=== PATIENT | male | born 1955 | race Caucasian/White ===

== ENCOUNTER → 2021-08-20 12:30 | Outpatient (CLI) | payer OTHER, SELFPAY ==
--- NOTE | 2021-08-20 | DI.MRI.S_ITS ---
PROCEDURE: MR WRIST LT W CON INDICATIONS: Left scapholunate collapse TECHNIQUE: After the administration of 3-4 mL of dilute intra-articular Gadolinium contrast into the radiocarpal compartment, coronal T1 spin echo with fat saturation and T2 fast spin echo with fat saturation, axial T1 spin echo and T2 fast spin echo with fat saturation, sagittal T1 spin echo with and without fat saturation through the wrist. COMPARISON: [facility], CR, XR WRIST 3+ VIEWS LEFT, 03/23/2021, 14:43. FINDINGS: Image quality: Excellent. Bones and cartilage: Scattered T2 hyperintense/T1 hypointense lesions are seen throughout the carpus, most prominent in the hamate, measuring up to 7.3 mm, which may reflect fibrocystic or erosive change. Irregularity of the proximal scaphoid pole with fragmentation. The remaining overlying cartilage surfaces appear maintained. Carpal ligaments: Partial tear of the scapholunate ligament. The lunotriquetral ligaments is intact. The radioscaphocapitate and radiolunotriquetral ligaments appear intact. Widening of the 3rd intermetacarpal space, compatible with interosseous ligament disruption. Triangular fibrocartilage complex: Ulnar avulsion of the TFCC. No gadolinium extravasation into the distal radioulnar joint. The extensor carpi ulnaris tendon is normal in location. Fluid surrounds the tendon, which may reflect tenosynovitis. Tendons and soft tissues: The carpal tunnel structures appear normal, including the median nerve. The ulnar nerve appears normal within Guyon's canal. The remaining extensor tendon compartments demonstrate normal morphology, without pathologic tendon sheath fluid. Fluid surrounds the flexor carpi radialis tendon, concerning for tenosynovitis. IMPRESSION: 1. Scattered cystic changes of the carpus, which may reflect fibrocystic or erosive change. 2. 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 3. Partial tear of the scapholunate ligament without widening. 4. Widening of the 3rd intermetacarpal space, concerning for interosseous ligament disruption. 5. Ulnar avulsion of the TFCC. 6. Tenosynovitis of the flexor carpi radialis and extensor carpi ulnaris tendons. Dictated by: Niraj Hankins M.D. on 08/20/2021 at 15:07 Approved by: Niraj Hankins M.D. on 08/20/2021 at 15:32
--- NOTE | 2021-08-20 | DI.RAD.S_ITS ---
PROCEDURE: FL WRIST INJECTION MR/CT LT INDICATIONS: Left scapholunate collapse COMPARISON: None. TECHNIQUE: After informed consent had been obtained, the wrist was examined fluoroscopically, and a site chosen for injection of the radiocarpal compartment from a dorsal approach. Skin was prepped and draped in a sterile fashion and 1% lidocaine infiltrated from the skin down to the articular surface. A hypodermic needle was then introduced into the articular space and a modest amount of contrast medium was instilled confirming intra-articular needle tip placement. This was followed by approximately 4 mL of a dilute gadolinium solution. Needle was removed and dressing was applied. The patient experienced no complications throughout the procedure and left the fluoroscopic suite in no apparent distress. FINDINGS: A single fluoroscopic spot image demonstrates intra-articular location to injected iodinated contrast. IMPRESSION: Successful fluoroscopic-guided administration of dilute Gadolinium solution for wrist MR arthrogram. Dictated by: Andrew Dugan M.D. on 08/20/2021 at 15:46 Approved by: Andrew Dugan M.D. on 08/20/2021 at 15:51
== END ==
PROVIDERS: PCP Family Medicine; Referring Provider Orthopaedic Surgery; Visit Provider Orthopaedic Surgery
DX: M19.132 Post-traumatic osteoarthritis, left wrist (principal); S63.592A Other specified sprain of left wrist, initial encounter; S66.892A Other injury of other specified muscles, fascia and tendons at wrist and hand level, left hand, initial encounter; M65.9 Synovitis and tenosynovitis, unspecified
CPT/HCPCS: 20605; 73222; 76000